=== PATIENT | male | born 1980 | race Caucasian/White ===

== ENCOUNTER 2020-09-12 22:22 | Emergency (ER) | payer SELFPAY ==
[2020-09-12 22:33] VITALS: BP 138/89; PULSE 89; RESP 18; TEMP 36.7; O2SAT 97; BMI 27.2
--- NOTE | 2020-09-12 22:43 | ED.CHESTPAIN ---
HPI - Chest Pain General Chief Complaint: Chest Pain Stated Complaint: CHEST PAIN Time Seen by Provider: 09/12/20 22:43 Source: patient Mode of arrival: ambulatory Limitations: no limitations History of Present Illness HPI narrative: patient chronic smoker with no known cardiac history about hour and a half ago while relaxing patient noticed mid chest pain radiating to left arm which was severe for 5 minutes and got better gradually. Patient denies any diaphoresis no shortness of breath no nausea no vomiting patient never had this pain before patient denied use of any cocaine no significant family history of coronary artery disease complaint: chest pain Onset (ago): minute(s) (90) Prior episodes: No Onset: during rest Pain location: substernal Pain radiation: left arm Severity: moderate Related Data Home Medications Medication Instructions Recorded Confirmed No Known Home Meds 09/12/20 09/12/20 Allergies Allergy/AdvReac Type Severity Reaction Status Date / Time prednisone [PREDNISONE] AdvReac Unknown AGITATION Verified 09/12/20 22:33 Review of Systems Review of Systems: REVIEW OF SYSTEMS: Pertinent positives and negatives are stated above in the history. GEN: no fevers, chills, fatigue HEENT: no nasal congestion, sore throat, ear pain NEURO: no headache, dizziness, focal weakness PULM: no cough, shortness of breath CV: no palpitations, LE edema ABD: no abdominal pain, nausea, vomiting, diarrhea : no dysuria, urgency, frequency SKIN: no rash ROS otherwise negative x 10 PMFSH Past Medical History Medical History History of dental problems Social History Social History Alcohol intake: current Alcohol intake frequency: holidays/special occasions only Smoking Status: Current every day smoker Use of substances other than those prescribed or required for medical reasons: No Advance Directives: No Advance Directives Information Provided: Yes Physical Exam Vital Signs: Vital Signs: Vital Signs Temp Pulse Resp BP Pulse Ox 09/12/20 22:47 85 14 158/96 H 97 09/12/20 22:33 98.1 F 89 18 138/89 97 Body Mass Index 27.2 VITAL SIGNS: Reviewed. GENERAL: Well developed, well nourished, in no acute distress. HEAD: Normocephalic/atraumatic, EYES: PERRLA No pallor/icterus noted EARS: Ext canals without abnormality NOSE: Nares patent bilateral OROPHARYNX: Oral mucosa moist no oral lesions NECK: Supple, no adenopathy LUNGS: Normal breath sounds. No adventitious sounds or accessory muscle use CARDIOVASCULAR: Regular rate and rhythm without noted murmurs, no JVD or lower extremity edema. ABDOMEN: Soft, non-tender, non-distended with bowel sounds. No rigidity. No guarding. No palpable masses or hernias noted MUSCULOSKELETAL: No tenderness, deformities, EXTREMITIES: No cyanosis or edema. SKIN: no rashes, ulcerations, jaundice, pallor, or petechiae NEUROLOGIC: Alert and oriented x 3. Strength and sensation to light touch were grossly intact Course Course Course Narrative: patient with chest pain without any acute EKG changes etiology not clear would like to do labs to rule out acute ischemic event. Patient refused to do any labs very anxious does not want any blood to be drawn understood risk of not doing the blood test will give him aspirin for now discharge him against medical advise MDM - Chest Pain ECG Data ECG #1: Attestation: I personally reviewed and interpreted this ECG as follows: ECG interpretation date: 09/12/20 Interpretation: normal sinus rhythm with heart rate of 90 normal axis poor progression of R-wave in anterior leads no acute ST T wave changes impression no acute ischemia Discharge Plan Discharge Clinical Impression: Chest pain Patient Disposition: Left Against Medical Advice Instructions: Chest Pain (ED) Additional Instructions: take baby aspirin daily. Follow with primary care doctor for further evaluation. You have been discharged against medical advise please seek medical attention as soon as possible Prescriptions: No Action No Known Home Meds RF: 0 Referrals: Oliver Ayala MD [Physician] - 1 week Stand Alone Forms: Against Medical Advice
[2020-09-12 22:47] VITALS: BP 158/96; PULSE 85; RESP 14; O2SAT 97
[2020-09-12] MEDS: Aspirin 81 MG TAB.CHEW 162 MG PO (23:07)
--- NOTE | 2020-09-14 | ECG_ITS ---
Test Reason : CP Blood Pressure : / mmHG Vent. Rate : 090 BPM Atrial Rate : 090 BPM P-R Int : 120 ms QRS Dur : 082 ms QT Int : 358 ms P-R-T Axes : 048 028 044 degrees QTc Int : 437 ms Normal sinus rhythm RSR' or QR pattern in V1 suggests right ventricular conduction delay Nonspecific T wave abnormality Inferior leads Lateral leads Abnormal ECG Nonspecific T wave abnormality are new Referred By: Emery Huff Electronically Signed By:CHARLES LIN MD
== END 2020-09-12 23:52 | disposition left against medical advice (07) ==
PROVIDERS: Emergency Provider Internal Medicine
DX: R07.9 Chest pain, unspecified (principal); F17.200 Nicotine dependence, unspecified, uncomplicated; Z71.6 Tobacco abuse counseling
CPT/HCPCS: 93005; 99283; 99284

== ENCOUNTER 2020-09-22 10:10 | Outpatient (REF) | payer SELFPAY | END 2020-09-22 10:11 | disposition home or self-care (01) | LOC: HO.LAB 10:10 | PROVIDERS: Visit Provider Internal Medicine | DX: Z20.828 Contact with and (suspected) exposure to other viral communicable diseases (principal) | CPT/HCPCS: C9803; U0003 ==

== ENCOUNTER 2020-12-31 13:25 | Emergency (ER) | payer MEDICAID, SELFPAY ==
[2020-12-31 13:43] VITALS: BP 131/89; PULSE 81; RESP 18; TEMP 37.2; O2SAT 98; BMI 28.7
--- NOTE | 2020-12-31 13:43 | ED.DENTAL ---
HPI - Dental/Oral General Chief complaint: Dental/Oral Stated complaint: DENTAL PAIN Time Seen by Provider: 12/31/20 13:43 Source: patient Mode of arrival: ambulatory Limitations: no limitations History of Present Illness HPI Narrative: States history of extensive dental problems secondary to not having insurance has not had much dental care he has a dental decay several weeks ago he chipped his left upper molar and feels like that is infected. No facial swelling or discharge. No rash. No fever. No dysphagia. MD Complaint: tooth pain Location: Tooth # Onset (ago): day(s) Severity: moderate Exacerbating factors: chewing Context: history of dental caries Treatment prior to arrival: none Related Data Previous Rx's Medication Instructions Recorded ibuprofen 800 mg PO Q8H PRN #30 tab 12/31/20 penicillin V potassium 500 mg PO BID 10 Days #20 tab 12/31/20 Allergies Allergy/AdvReac Type Severity Reaction Status Date / Time prednisone [PREDNISONE] AdvReac Unknown AGITATION Verified 09/12/20 22:33 Review of Systems Review of Systems: Constitutional: No Weight loss, No Fever, No Chills, No Night Sweats, No Fatigue, No Malaise ENT/Mouth: No Hearing loss, No Ear Pain, No Nasal Congestion, No Sinus Pain, No Hoarseness, No sore throat, No Rhinorrhea, No Swallowing Difficulty Eyes: No Eye Pain, No Swelling, No Redness, No Foreign Body, No Discharge, No Vision Changes Cardiovascular: Negative Respiratory: Negative Gastrointestinal: Negative Genitourinary: Negative Musculoskeletal: No joint pain, No Myalgias, No Joint Swelling Skin: No Skin Lesions, No rash Neuro: Negative Psych: No Social Issues Heme/Lymph: No Bruising, No Bleeding,No Lymphadenopathy Endocrine: No Polyuria, No Polydipsia, No Temperature Intolerance Yes all other systems are reviewed and are negative [facility] Past Medical History Medical History History of dental problems Social History Social History Alcohol intake: current Alcohol intake frequency: holidays/special occasions only Smoking Status: Current every day smoker Advance Directives: No Advance Directives Information Provided: Yes Physical Exam Vital Signs: Vital Signs: Last Vital Signs Temp 99.0 F 12/31/20 13:43 Pulse 81 12/31/20 13:43 Resp 18 12/31/20 13:43 BP 131/89 12/31/20 13:43 Pulse Ox 98 12/31/20 13:43 Body Mass Index 28.7 Reviewed Const: General: cooperative and healthy appearing; No acute distress or intoxicated appearing Nutritional Appearance: average body habitus Orientation/consciousness: patient oriented x3 HENMT: Head: Yes normal to inspection Ears: hearing grossly normal bilaterally Teeth and gingiva: other (Extensive decay essentially eroded 13. 14. 15 and partially chip 16. ) Eyes: General: appearance normal, both eyes and all related structures Visual Aguilar: normal visual aguilar by confrontation Neck: Neck: Yes normal visual inspection, No positive Brudzinski's sign, No positive Kernig's sign and No tender Thyroid: Thyroid normal Resp: Effort & Inspection: normal respiratory effort Auscultation: clear to auscultation bilaterally Cardio: Jugular venous distension: no JVD Skin: General skin exam: no rashes or lesions noted Neuro: General: patient oriented x3 Extrem: General: Yes normal to inspection Discharge Plan Discharge Clinical Impression: Dental caries Patient Disposition: Home, Self-Care Instructions: Toothache (ED) Additional Instructions: [place] diet Chewing a good-sized Not rinses after heating Take your antibiotics Motrin for pain Follow-up with dentist as instructed Return if any concerns or worsening symptoms Thank you Prescriptions: New ibuprofen 800 mg tablet 800 mg PO Q8H PRN (Reason: pain) Qty: 30 RF: 0 penicillin V potassium 500 mg tablet 500 mg PO BID 10 Days Qty: 20 RF: 0 Referrals: Physician,None [Primary Care Provider] - 2 days (Dental list provided)
== END 2020-12-31 14:22 | disposition home or self-care (01) ==
PROVIDERS: Emergency Provider Emergency Medicine
DX: K02.9 Dental caries, unspecified (principal); F17.200 Nicotine dependence, unspecified, uncomplicated; Z71.6 Tobacco abuse counseling; Z79.899 Other long term (current) drug therapy
CPT/HCPCS: 99283

== ENCOUNTER 2021-08-04 08:36 | Outpatient (REF) | payer MEDICAID, SELFPAY | END 2021-08-04 08:37 | disposition home or self-care (01) | LOC: HO.LAB 08:36 | PROVIDERS: Visit Provider Internal Medicine | DX: Z20.822 Contact with and (suspected) exposure to COVID-19 (principal) | CPT/HCPCS: C9803; U0003; U0005 ==

== ENCOUNTER 2021-08-16 22:46 | Emergency (ER) | payer MEDICAID, SELFPAY ==
[2021-08-16 23:34] VITALS: BP 141/84; PULSE 76; RESP 16; TEMP 36.8; O2SAT 97; BMI 27.8
--- NOTE | 2021-08-17 00:39 | ED.DENTAL ---
HPI - Dental/Oral General Chief complaint: Dental/Oral Stated complaint: dental pain Source: patient Mode of arrival: ambulatory Limitations: no limitations History of Present Illness HPI Narrative: Patient presents to ED for right dental pain since yesterday. Patient denies any facial swelling or any recent head/face trauma. Patient denies any neck swelling. Patient states history of bad teeth and needs to be extracted but does not have time due to work. Related Data Previous Rx's Medication Instructions Recorded ibuprofen 800 mg tablet 800 mg PO Q8H PRN #30 tab 12/31/20 penicillin V potassium 500 mg 500 mg PO BID 10 Days #20 tab 12/31/20 tablet amoxicillin 875 mg-potassium 1 tab PO Q12H 10 Days #20 tab 08/17/21 clavulanate 125 mg tablet (Augmentin) naproxen 500 mg tablet 500 mg PO BID PRN #20 tab 08/17/21 Allergies Allergy/AdvReac Type Severity Reaction Status Date / Time prednisone [PREDNISONE] AdvReac Unknown AGITATION Verified 09/12/20 22:33 Review of Systems Review of Systems: Yes all other systems are reviewed and are negative Constitutional: Constitutional: Reports as per HPI and Reports no additional constitutional complaints Eyes: Eyes: Reports as per HPI and Reports no additional eye complaints ENT: Reports system reviewed and no additional complaints, except as documented, Reports as per HPI and Reports dental pain Cardiovascular: Cardiovascular: Reports as per HPI and Reports no additional cardiovascular complaints Respiratory: Respiratory: Reports as per HPI and Reports no additional respiratory complaints Gastrointestinal: Gastrointestinal: Reports as per HPI and Reports no additional gastrointestinal complaints Genitourinary: Genitourinary: Reports no additional male genitourinary complaints and Reports as per HPI Musculoskeletal: Musculoskeletal: Reports no additional musculoskeletal complaints and Reports as per HPI Neurologic: Reports system reviewed and no additional complaints, except as documented and Reports as per HPI Psychiatric: Psychiatric: Reports no additional psychiatric complaints and Reports as per HPI Endocrine: Endocrine: Reports no additional endocrine complaints and Reports as per HPI [facility] Past Medical History Medical History History of dental problems Social History Social History Alcohol intake: current Alcohol intake frequency: holidays/special occasions only Advance Directives: No Advance Directives Information Provided: Yes Physical Exam Vital Signs: Vital Signs: Last Vital Signs Temp 98.3 F 08/16/21 23:34 Pulse 76 08/16/21 23:34 Resp 16 08/16/21 23:34 BP 141/84 H 08/16/21 23:34 Pulse Ox 97 08/16/21 23:34 Body Mass Index 27.8 Const: General: cooperative, healthy appearing, comfortable, no acute distress, well developed, alert, awake and Physically active Orientation/consciousness: patient oriented x3 HENMT: Head: Yes normal to inspection, Yes No palpable skull fracture present, Yes normocephalic, Yes atraumatic and No abrasion Teeth image: 1. Positive for tenderness on palpation. Positive for slight decay. Negative for any swelling of the gum, redness of gum, or pus discharge. Negative for facial swelling. Eyes: General: appearance normal, both eyes and all related structures Neck: Neck: Yes normal visual inspection, Yes full ROM, Yes no lymphadenopathy, Yes no meningeal signs, Yes trachea midline, Yes supple, No anterior neck swelling and No tender Chest: Chest palpation & inspection: normal inspection of the chest and normal palpation of entire chest wall Resp: Effort & Inspection: normal respiratory effort and able to speak in complete sentences Auscultation: clear to auscultation bilaterally Cardio: Jugular venous distension: no JVD Heart sounds: S1 normal heart sound present and S2 normal heart sound present GI: Inspection: Yes normal to inspection and No abdominal wall ecchymosis Palpation (GI): Soft to palpation, not firm, nontender, no guarding and not rigid : General: No CVA tenderness and Yes no CVA tenderness Back/Spine/Pelvis: Back: no CVA tenderness, No CVA tenderness and No back tenderness Skin: General skin exam: no rashes or lesions noted and elasticity normal Neuro: General: patient oriented x3, gait normal, no meningeal signs and CN's II-XI intact bilaterally Cranial nerves: Yes CN's II-XII intact bilaterally Extrem: General: Yes normal to inspection and Yes full ROM Psych: Appearance: grossly normal, well kempt and not disheveled Course Course Course Narrative: Negative for any facial or neck swelling. Negative for signs of trauma. Not suspecting any retropharyngeal abscess. Reevaluation(s) Reevaluation #1: Patient given Toradol. Patient will be discharged with antibiotics and pain meds Time: 20:47 MDM - Dental/Oral MDM Narrative Medical decision making narrative: Dental pain Discharge Plan Discharge Clinical Impression: Toothache Patient Disposition: Home, Self-Care Instructions: Toothache (ED) Additional Instructions: Return to the ED immediately for any facial swelling, neck swelling, drooling, shortness of breath, change in voice, drooling, chest pain, or any other concerning symptoms. Please follow-up with dentist Prescriptions: New naproxen 500 mg tablet 500 mg PO BID PRN (Reason: pain) Qty: 20 RF: 0 amoxicillin-pot clavulanate [Augmentin] 875-125 mg tablet 1 tab PO Q12H 10 Days Qty: 20 RF: 0 No Action ibuprofen 800 mg tablet 800 mg PO Q8H PRN (Reason: pain) Qty: 30 RF: 0 penicillin V potassium 500 mg tablet 500 mg PO BID 10 Days Qty: 20 RF: 0 Stand Alone Forms: Work/School Release Print Language: Persian
== END 2021-08-17 01:07 | disposition home or self-care (01) ==
PROVIDERS: Emergency Provider Internal Medicine
DX: K08.89 Other specified disorders of teeth and supporting structures (principal); Z79.899 Other long term (current) drug therapy
CPT/HCPCS: 96372; 99283; 99284

== ENCOUNTER 2021-08-20 03:15 | Emergency (ER) | payer MEDICAID, SELFPAY ==
[2021-08-20 03:38] VITALS: BP 169/86; PULSE 85; RESP 16; TEMP 36.5; O2SAT 99; BMI 28.7
--- NOTE | 2021-08-20 05:38 | PC.NURSE ---
at bedside for primary eval.
--- NOTE | 2021-08-20 05:47 | ED_ITS ---
HPI - Eye Problem General Chief complaint: Eye Problems Stated complaint: Eye Swelling Time Seen by Provider: 08/20/21 05:43 Source: patient Mode of arrival: ambulatory Limitations: no limitations History of Present Illness HPI Narrative: Patient comes emergency room complaining of left eye swelling and itchiness and redness. Patient states he has been rubbing his eye. Patient denies foreign body sensation, no pain. Patient denies fever chills. States that his vision is within normal limits bilaterally Related Data Previous Rx's Medication Instructions Recorded ibuprofen 800 mg tablet 800 mg PO Q8H PRN #30 tab 12/31/20 penicillin V potassium 500 mg 500 mg PO BID 10 Days #20 tab 12/31/20 tablet amoxicillin 875 mg-potassium 1 tab PO Q12H 10 Days #20 tab 08/17/21 clavulanate 125 mg tablet (Augmentin) naproxen 500 mg tablet 500 mg PO BID PRN #20 tab 08/17/21 erythromycin 5 mg/gram (0.5 %) eye 0.5 inch OPHTHALMIC (EYE) BID #1 g 08/20/21 ointment Allergies Allergy/AdvReac Type Severity Reaction Status Date / Time prednisone [PREDNISONE] AdvReac Unknown AGITATION Verified 09/12/20 22:33 Review of Systems Review of Systems: Constitutional : No Weight loss, No Fever, No Chills, No Night Sweats, No Fatigue, No Malaise ENT/Mouth : No Hearing loss, No Ear Pain, No Nasal Congestion, No Sinus Pain, No Hoarseness, No sore throat, No Rhinorrhea, No Swallowing Difficulty, Eyes: No Eye Pain, No Swelling, no foreign body sensation, complaining of redness in the left eye, mild discharge, very itchy. Right eye within normal limits Cardiovascular : No Chest Pain, No SOB, No Dyspnea on Exertion, No Orthopnea, No Edema, No Palpitations Respiratory : No Cough, No Sputum, No Wheezing, No Smoke Exposure, No Dyspnea Gastrointestinal : No Nausea, No Vomiting, No Diarrhea, No Constipation, No abdominal Pain, No Hematochezia, No Melena Genitourinary : no irregular bleeding, No Dysuria, No Urinary Frequency, No Hematuria, No Urinary Incontinence, No Urgency, No Flank Pain, No Urinary Flow Changes, No Hesitancy Musculoskeletal : No joint pain, No Myalgias, No Joint Swelling Skin : No Skin Lesions, No rash Neuro : No Weakness, No Numbness, No Paresthesias, No Loss of Consciousness, No Dizziness, No Headache Psych : No Anxiety/Panic, No Depression, No SI/HI/AH/VH, No Social Issues, Heme/Lymph: No Bruising, No Bleeding,No Lymphadenopathy Endocrine : No Polyuria, No Polydipsia, No Temperature Intolerance ON LICENSE OF [facility] Past Medical History Medical History History of dental problems Social History Social History Alcohol intake: current Alcohol intake frequency: holidays/special occasions only Advance Directives: No Advance Directives Information Provided: No Physical Exam Vital Signs: Vital Signs: Last Vital Signs Temp 97.7 F 08/20/21 03:38 Pulse 85 08/20/21 03:38 Resp 16 08/20/21 03:38 BP 169/86 H 08/20/21 03:38 Pulse Ox 99 08/20/21 03:38 Body Mass Index 28.7 Const: Other: Appearance: Alert. Oriented X3. No acute distress. Eyes: Pupils equal, round and reactive to light. Left eye conjunctiva erythematous, scant discharge, fluorescein stain exam shows no corneal abrasions ENT: Pharynx normal. Neck: Normal inspection. Neck supple. No lymph nodes noted. No crepitus CVS: Normal heart rate and rhythm. Pulses normal. Normal S1 and S2 Respiratory: No respiratory distress. Breath sounds normal. No Wheezing. No rales Abdomen: Soft and nontender. No rigidity. No distention. good BS x4 Skin: Skin warm and dry. Normal skin color. Normal skin turgor. Extremities: No lower extremity edema. No lower extremity edema. No Lacerations. No Rash Neuro: Oriented X 3. No motor deficit. No sensory deficit. Moving all extermities. No slurred speech. Course Course Course Narrative: I discussed with the patient that he likely has conjunctivitis. Discharge Plan Discharge Clinical Impression: Conjunctivitis Patient Disposition: Home, Self-Care Instructions: Conjunctivitis (ED) Additional Instructions: Please follow-up with your primary care physician tomorrow. If you have any worsening or new symptoms, please return to the emergency room or call 911 Prescriptions: New erythromycin 5 mg/gram (0.5 %) ointment 0.5 inch ophthalmic (eye) BID Qty: 1 RF: 0 No Action ibuprofen 800 mg tablet 800 mg PO Q8H PRN (Reason: pain) Qty: 30 RF: 0 penicillin V potassium 500 mg tablet 500 mg PO BID 10 Days Qty: 20 RF: 0 naproxen 500 mg tablet 500 mg PO BID PRN (Reason: pain) Qty: 20 RF: 0 amoxicillin-pot clavulanate [Augmentin] 875-125 mg tablet 1 tab PO Q12H 10 Days Qty: 20 RF: 0
[2021-08-20] MEDS: Tetracaine HCl/PF 0.5% Oph Sol 4 ML DROPS 1 DROP EYE-BOTH (05:53)
[2021-08-20] MEDS: Fluorescein Sodium STRIP 1 STRIP EYE-BOTH (05:53)
--- NOTE | 2021-08-20 05:53 | PC.NURSE ---
Meds left at PT bed side for MD. PT awaiting eye exam.
[2021-08-20 06:15] VITALS: BP 144/93; PULSE 72; RESP 16; O2SAT 98
== END 2021-08-20 06:16 | disposition home or self-care (01) ==
PROVIDERS: Emergency Provider Emergency Medicine
DX: H10.32 Unspecified acute conjunctivitis, left eye (principal); Z79.899 Other long term (current) drug therapy
CPT/HCPCS: 99283; 99284

== ENCOUNTER 2021-11-01 12:54 | Outpatient (REF) | payer MEDICAID, SELFPAY | END 2021-11-01 12:55 | disposition home or self-care (01) | LOC: HO.LAB 12:54 | PROVIDERS: Visit Provider Internal Medicine | DX: Z20.822 Contact with and (suspected) exposure to COVID-19 (principal) | CPT/HCPCS: C9803; U0003; U0005 ==

== ENCOUNTER 2023-06-13 04:01 | Emergency (ER) | payer MEDICAID, SELFPAY ==
[2023-06-13 04:02] VITALS: BP 159/98; PULSE 90; RESP 20; TEMP 36.9; O2SAT 98; BMI 32.5
--- NOTE | 2023-06-13 04:46 | ED_ITS ---
HPI - Dental/Oral General Chief complaint: Dental/Oral Stated complaint: Dental infection Time Seen by Provider: 06/13/23 04:42 Source: patient Mode of arrival: ambulatory Limitations: no limitations History of Present Illness HPI Narrative: Patient comes to the emergency room complaining of dental pain. Couple of years ago patient chipped his tooth off in the front, and lately it has been acting up. Patient denies fever chills. Patient states that he has been avoiding for the last few years to go to the dentist but is aware that now he needs to make an appointment. MD Complaint: tooth pain Teeth map: 1. Related Data Previous Rx's Medication Instructions Recorded ibuprofen 800 mg tablet 800 mg PO Q8H PRN pain #30 tabs 12/31/20 penicillin V potassium 500 mg 500 mg PO BID 10 days #20 tabs 12/31/20 tablet amoxicillin 875 mg-potassium 1 tab PO Q12H 10 days #20 tabs 08/17/21 clavulanate 125 mg tablet (Augmentin) naproxen 500 mg tablet 500 mg PO BID PRN pain #20 tabs 08/17/21 erythromycin 5 mg/gram (0.5 %) eye 0.5 inch ophthalmic (eye) BID #1 g 08/20/21 ointment ibuprofen 600 mg tablet 600 mg PO TID PRN fever or pain 06/13/23 #20 tabs penicillin V potassium 500 mg 500 mg PO TID 10 days #30 tabs 06/13/23 tablet Allergies Allergy/AdvReac Type Severity Reaction Status Date / Time prednisone [PREDNISONE] AdvReac Unknown AGITATION Verified 09/12/20 22:33 Review of Systems Review of Systems: Constitutional : No Weight loss, No Fever, No Chills, No Night Sweats, No Fatigue, No Malaise ENT/Mouth : Complaining of dental pain, No Hearing loss, No Ear Pain, No Nasal Congestion, No Sinus Pain, No Hoarseness, No sore throat, No Rhinorrhea, No Swallowing Difficulty Eyes: No Eye Pain, No Swelling, No Redness, No Foreign Body, No Discharge, No Vision Changes Cardiovascular : No Chest Pain, No SOB, No Dyspnea on Exertion, No Orthopnea, No Edema, No Palpitations Respiratory : No Cough, No Sputum, No Wheezing, No Smoke Exposure, No Dyspnea Gastrointestinal : No Nausea, No Vomiting, No Diarrhea, No Constipation, No abdominal Pain, No Hematochezia, No Melena Genitourinary : no irregular bleeding, No Dysuria, No Urinary Frequency, No Hematuria, No Urinary Incontinence, No Urgency, No Flank Pain, No Urinary Flow Changes, No Hesitancy Musculoskeletal : No joint pain, No Myalgias, No Joint Swelling Skin : No Skin Lesions, No rash Neuro : No Weakness, No Numbness, No Paresthesias, No Loss of Consciousness, No Dizziness, No Headache Psych : No Anxiety/Panic, No Depression, No SI/HI/AH/VH, No Social Issues, Heme/Lymph: No Bruising, No Bleeding,No Lymphadenopathy Endocrine : No Polyuria, No Polydipsia, No Temperature Intolerance [facility] Past Medical History Medical History History of dental problems Social History Social History Alcohol intake: current Alcohol intake frequency: holidays/special occasions only Advance Directives: No Advance Directives Information Provided: Yes Physical Exam Vital Signs: Vital Signs: Last Vital Signs Temp 98.5 F 06/13/23 04:02 Pulse 90 06/13/23 04:02 Resp 20 06/13/23 04:02 BP 159/98 H 06/13/23 04:02 Pulse Ox 98 06/13/23 04:02 O2 Del Method Room Air 06/13/23 04:02 BMI result Body Mass Index 32.5 Const: Other: Appearance: Alert. Oriented X3. No acute distress. Eyes: Pupils equal, round and reactive to light. ENT: Pharynx normal. Complaining of dental pain, chipped tooth #8. Neck: Normal inspection. Neck supple. No lymph nodes noted. No crepitus CVS: Normal heart rate and rhythm. Pulses normal. Normal S1 and S2 Respiratory: No respiratory distress. Breath sounds normal. No Wheezing. No rales Abdomen: Soft and nontender. No rigidity. No distention. Skin: Skin warm and dry. Normal skin color. Normal skin turgor. Extremities: No lower extremity edema. No Lacerations. No Rash Neuro: Oriented X 3. No motor deficit. No sensory deficit. Moving all extremities. No slurred speech. CN 2 through 12 grossly intact Psych: calm, cooperative, normal affect Medical Decision Making Medical Decision Making MDM Narrative: -discussed with the patient that he needs to be seen by a dentist for definitive treatment. -patient was prescribed antibiotics, patient declined IM medication for pain. Patient prefers ibuprofen. Differential Diagnosis Differential Diagnoses: The differential diagnosis associated with the presentation includes (Cavity, gingivitis, chipped tooth) Discharge Plan Discharge Clinical Impression: Toothache Patient Disposition: Home, Self-Care Instructions: Toothache (ED) Additional Instructions: Please follow-up with your primary care physician tomorrow. If you have any worsening or new symptoms, please return to the emergency room or call 911 Prescriptions: New penicillin V potassium 500 mg tablet 500 mg PO TID 10 Days Qty: 30 0RF ibuprofen 600 mg tablet 600 mg PO TID PRN (Reason: fever or pain) Qty: 20 0RF No Action ibuprofen 800 mg tablet 800 mg PO Q8H PRN (Reason: pain) Qty: 30 0RF penicillin V potassium 500 mg tablet 500 mg PO BID 10 Days Qty: 20 0RF erythromycin 5 mg/gram (0.5 %) ointment 0.5 inch ophthalmic (eye) BID Qty: 1 0RF naproxen 500 mg tablet 500 mg PO BID PRN (Reason: pain) Qty: 20 0RF amoxicillin-pot clavulanate [Augmentin] 875-125 mg tablet 1 tab PO Q12H 10 Days Qty: 20 0RF Stand Alone Forms: Work/School Release
== END 2023-06-13 04:59 | disposition home or self-care (01) ==
PROVIDERS: Emergency Provider Emergency Medicine
DX: K08.89 Other specified disorders of teeth and supporting structures (principal); Z79.899 Other long term (current) drug therapy
CPT/HCPCS: 99283; 99284

== ENCOUNTER 2023-08-14 04:01 | Emergency (ER) | payer MEDICAID, SELFPAY ==
[2023-08-14 04:21] VITALS: BP 127/87; PULSE 81; RESP 16; TEMP 36.3; O2SAT 98; BMI 30.7
[2023-08-14 05:25] VITALS: BP 129/95; PULSE 72; RESP 16; TEMP 36.8; O2SAT 98
--- NOTE | 2023-08-14 05:48 | ED.EAR ---
HPI - Ear Problem General Chief complaint: Ear Problems Stated complaint: Unable to hear out of left Time Seen by Provider: 08/14/23 05:13 Source: patient Mode of arrival: ambulatory Limitations: no limitations History of Present Illness HPI Narrative: Patient presents of loss of hearing of the left ear. Started tonight will get 2:00 a.m. in the morning. Denies any pain, fevers, chills, discharge. Tried to clean his ear with a Q-tip but made the symptoms worse. Related Data Previous Rx's Medication Instructions Recorded ibuprofen 800 mg tablet 800 mg PO Q8H PRN pain #30 tabs 12/31/20 penicillin V potassium 500 mg 500 mg PO BID 10 days #20 tabs 12/31/20 tablet amoxicillin 875 mg-potassium 1 tab PO Q12H 10 days #20 tabs 08/17/21 clavulanate 125 mg tablet (Augmentin) naproxen 500 mg tablet 500 mg PO BID PRN pain #20 tabs 08/17/21 erythromycin 5 mg/gram (0.5 %) eye 0.5 inch ophthalmic (eye) BID #1 g 08/20/21 ointment ibuprofen 600 mg tablet 600 mg PO TID PRN fever or pain 06/13/23 #20 tabs penicillin V potassium 500 mg 500 mg PO TID 10 days #30 tabs 06/13/23 tablet Allergies Allergy/AdvReac Type Severity Reaction Status Date / Time prednisone [PREDNISONE] AdvReac Unknown AGITATION Verified 09/12/20 22:33 Review of Systems Review of Systems: CONSTITUTIONAL: Denies weight loss, fever and chills. HEENT: Denies changes in vision + hearing. RESPIRATORY: Denies SOB and cough. CV: Denies palpitations no CP. GI: Denies abdominal pain, nausea, vomiting and diarrhea. : Denies dysuria and urinary frequency. MSK: Denies myalgia and joint pain. SKIN: Denies rash and pruritus. NEUROLOGICAL: Denies headache and syncope. PSYCHIATRIC: Denies recent changes in mood. Denies anxiety and depression. All other ROS are negative unless in HPI PMFSH Past Medical History Medical History History of dental problems Social History Social History Alcohol intake: current Alcohol intake frequency: does not drink Advance Directives: No Physical Exam Vital Signs: Vital Signs: Last Vital Signs Temp 98.2 F 08/14/23 05:25 Pulse 72 08/14/23 05:25 Resp 16 08/14/23 05:25 BP 129/95 H 08/14/23 05:25 Pulse Ox 98 08/14/23 05:25 O2 Del Method Room Air 08/14/23 05:25 BMI result Body Mass Index 30.7 GEN: Well developed, no acute distress, alert, oriented HEENT: Normocephalic, atraumatic, normal external ears, nose appears normal, a cerumen impaction left ear, mild cerumen presents in the right ear Eyes: Normal to appearance Neck: Supple, no lymphadenopathy Respiratory: Talks in complete sentences, no respiratory distress Extremities: No clubbing cyanosis or edema Neurologic: No focal neurologic deficits, cranial nerves 2-12 intact, gait normal Skin: No rash Course Course Course Narrative: Cerumen removed from right ear. No evidence of perforation, tolerated procedure well. Will be discharged at this time. Procedures Ear Wax Removal Left Ear: Cerumenolytic Used: other (Hydrogen peroxide) Results: Re-examined: some cerumen remains TM Examination: TM(s) intact, normal appearance Ear Canal Exam: atraumatic Patient Tolerated Procedure: well Complications: no problems Technique: ear canal irrigated Medical Decision Making Medical Decision Making MDM Narrative: Patient presents with cerumen impaction left ear. Postprocedure, no evidence of otitis media or externa. Patient tolerated the procedure well. Differential Diagnosis Differential Diagnoses: The differential diagnosis associated with the presentation includes (Cerumen impaction) Prescription Management I considered prescription management with: Antibiotic Discharge Plan Discharge Clinical Impression: Impacted cerumen Patient Disposition: Home, Self-Care Instructions: Carbamide Peroxide (Into the ear) Prescriptions: No Action ibuprofen 800 mg tablet 800 mg PO Q8H PRN (Reason: pain) Qty: 30 0RF penicillin V potassium 500 mg tablet 500 mg PO BID 10 Days Qty: 20 0RF erythromycin 5 mg/gram (0.5 %) ointment 0.5 inch ophthalmic (eye) BID Qty: 1 0RF naproxen 500 mg tablet 500 mg PO BID PRN (Reason: pain) Qty: 20 0RF amoxicillin-pot clavulanate [Augmentin] 875-125 mg tablet 1 tab PO Q12H 10 Days Qty: 20 0RF penicillin V potassium 500 mg tablet 500 mg PO TID 10 Days Qty: 30 0RF ibuprofen 600 mg tablet 600 mg PO TID PRN (Reason: fever or pain) Qty: 20 0RF Referrals: Physician,None [Primary Care Provider] - (Primary care provider as needed) Stand Alone Forms: Work/School Release
== END 2023-08-14 06:12 | disposition home or self-care (01) ==
PROVIDERS: Emergency Provider Emergency Medicine
DX: H61.22 Impacted cerumen, left ear (principal)
CPT/HCPCS: 69209; 99282

== ENCOUNTER 2023-11-21 02:05 | Emergency (ER) | payer OTHER, SELFPAY ==
--- NOTE | 2023-11-21 | ECG_ITS ---
Test Reason : CHEST TIGHTNESS Blood Pressure : / mmHG Vent. Rate : 081 BPM Atrial Rate : 081 BPM P-R Int : 118 ms QRS Dur : 078 ms QT Int : 380 ms P-R-T Axes : 048 027 033 degrees QTc Int : 441 ms Normal sinus rhythm Normal ECG When compared with ECG of 12-SEP-2020 23:28, No significant change was found Referred By: Generic ED Physician Electronically Signed By:GEN JOHNSON MD
--- NOTE | ~2023-11-21 | XR_ITS ---
EXAMINATION: XR CHEST, 2 VIEWS CLINICAL INFORMATION: Cough COMPARISON: 01/29/2019 TECHNIQUE: PA and lateral views of the chest were obtained. FINDINGS: No consolidation, pneumothorax, or pleural effusion. Cardiac and mediastinal contours are normal. Pulmonary vasculature is unremarkable. Trachea is midline. Osseous structures are unremarkable. XR/XR chest 2V IMPRESSION: No acute cardiopulmonary findings.
[2023-11-21 02:12] VITALS: BP 137/98; PULSE 76; RESP 18; TEMP 36.6; O2SAT 98; BMI 31.6
--- NOTE | 2023-11-21 02:24 | MHC.EDTECH ---
patient refused Strep test
[2023-11-21 03:07] LABS: Influenza A PCR NEGATIVE (Negative); Influenza B PCR NEGATIVE (Negative); Resp Syncy Virus RNA Qual PCR NEGATIVE (Negative); SARS COV2 PCR INHOUSE NEGATIVE (Negative)
[2023-11-21 05:14] VITALS: BP 110/82; PULSE 62; TEMP 36.1; O2SAT 96
--- NOTE | 2023-11-21 05:25 | PC.NURSE ---
Ambulatory to x-ray. No distress noted.
--- NOTE | 2023-11-21 05:33 | ED.URI ---
HPI - URI/Sore Throat General Chief Complaint: Upper Respiratory Symptoms Stated Complaint: upper respiratory Time Seen by Provider: 11/21/23 05:11 Source: patient Mode of arrival: ambulatory Limitations: no limitations History of Present Illness HPI Narrative: Patient with nasal congestion cough wheezing for last 2 days history of same in the past but no diagnosis of asthma coughing with mucopurulent expectoration no fever no chills patient does have history of smoking Related Data Previous Rx's Medication Instructions Recorded ibuprofen 800 mg tablet 800 mg PO Q8H PRN pain #30 tabs 12/31/20 penicillin V potassium 500 mg 500 mg PO BID 10 days #20 tabs 12/31/20 tablet amoxicillin 875 mg-potassium 1 tab PO Q12H 10 days #20 tabs 08/17/21 clavulanate 125 mg tablet (Augmentin) naproxen 500 mg tablet 500 mg PO BID PRN pain #20 tabs 08/17/21 erythromycin 5 mg/gram (0.5 %) eye 0.5 inch ophthalmic (eye) BID #1 g 08/20/21 ointment ibuprofen 600 mg tablet 600 mg PO TID PRN fever or pain 06/13/23 #20 tabs penicillin V potassium 500 mg 500 mg PO TID 10 days #30 tabs 06/13/23 tablet albuterol sulfate 90 mcg/actuation 2 puff inhalation Q4-6H PRN 11/21/23 aerosol inhaler (ProAir HFA) shortness of breath or wheezing #8.5 grams benzonatate 200 mg capsule 200 mg PO TID PRN cough #30 caps 11/21/23 cefuroxime axetil 500 mg tablet 500 mg PO BID 10 days #20 tabs 11/21/23 doxycycline hyclate 100 mg tablet 100 mg PO BID #20 tabs 11/21/23 Allergies Allergy/AdvReac Type Severity Reaction Status Date / Time prednisone [PREDNISONE] AdvReac Unknown AGITATION Verified 11/21/23 02:16 Review of Systems Review of Systems: Yes all other systems are reviewed and are negative PMFSH Past Medical History Onset Date is defined in the Problem List Problems that require an onset date and time if occurred within 24 hrs of arrival to the ED Aortic Dissection and Rupture; Neurologic impairment; Cardiopulmonary Arrest; Endotracheal Intubation; Insertion or Replacement of Mechanical Circulatory Assist Device Medical History History of dental problems Social History Social History Alcohol intake: current Alcohol intake frequency: does not drink Smoked in Last 30 Days: Yes Use of substances other than those prescribed or required for medical reasons: No Advance Directives: No Advance Directives Information Provided: No Physical Exam Vital Signs: Vital Signs: Last Vital Signs Temp 97 F 11/21/23 05:14 Pulse 75 11/21/23 05:59 Resp 16 11/21/23 05:59 BP 128/92 H 11/21/23 05:59 Pulse Ox 96 11/21/23 05:14 O2 Del Method Room Air 11/21/23 05:14 BMI result Body Mass Index 31.6 Appearance: Alert. Oriented X3. No acute distress. ENT: Pharynx normal. Oral Mucosa moist inflamed nasal turbinate postnasal drip+ Neck: Normal inspection. Neck supple. CVS: Normal heart rate and rhythm. Pulses normal. Respiratory: No respiratory distress. Equal air entry bilateral, bilateral wheezing occasional crackles Abdomen: Soft and nontender. Bowel sounds are present, no mass palpable, no CVA tenderness Skin: Skin warm and dry. Normal skin color. Normal skin turgor. Extremities: No lower extremity edema. No calf tenderness Neuro: Oriented X 3. Medications Administered Discontinued Medications Generic Name Dose Route Start Last Admin Trade Name Freq PRN Reason Stop Dose Admin Albuterol Sulfate 2 puff 11/21/23 06:08 11/21/23 06:16 Albuterol Sulfate 90 Mcg 8 Gm Inhaler INHALE 11/21/23 06:09 2 puff ONCE ONE Administration Cefuroxime Axetil 500 mg 11/21/23 05:25 11/21/23 05:37 Cefuroxime Axetil 500 Mg Tablet PO 11/21/23 05:26 500 mg ONCE ONE Administration Albuterol Sulfate 2.5 mg/ 0 mg 11/21/23 05:25 11/21/23 05:50 Albuterol/Ipratropium 3 ml INHALE 11/21/23 05:26 5 dose ONCE ONE Administration Doxycycline Monohydrate 100 mg 11/21/23 05:25 11/21/23 05:37 Doxycycline Monohydrate 100 Mg Capsule PO 11/21/23 05:26 100 mg ONCE ONE Administration Medical Decision Making Medical Decision Making MDM Narrative: Patient has acute bronchitis x-ray negative patient noted to be wheezing in the ER will give nebulizing treatment discharge patient on antibiotics and inhaler Lab Data [facility] Lab Attestation statement: I reviewed the patient's lab results. Labs: Lab Results 11/21/23 Range/Units 02:24 Influenza Type A (PCR) NEGATIVE (Negative) Influenza Type B (PCR) NEGATIVE (Negative) RSV RNA Qual (PCR) NEGATIVE (Negative) SARS-CoV-2 RNA (RT-PCR) NEGATIVE (Negative) Independent Interpretation I performed an independent interpretation of an: Plain X-Ray Radiology Impression Discussion of test interpretation with radiology: I have reviewed the radiologist's reading. Discharge Plan Discharge Clinical Impression: Bronchitis Patient Disposition: Home, Self-Care Instructions: Acute Bronchitis (ED) Additional Instructions: Take antibiotics and inhaler as prescribed Cough drops as prescribed Follow with PCP as needed Stop smoking Prescriptions: New benzonatate 200 mg capsule 200 mg PO TID PRN (Reason: cough) Qty: 30 0RF cefuroxime axetil 500 mg tablet 500 mg PO BID 10 Days Qty: 20 0RF doxycycline hyclate 100 mg tablet 100 mg PO BID Qty: 20 0RF albuterol sulfate [ProAir HFA] 90 mcg/actuation HFA aerosol inhaler 2 puff inhalation Q4-6H PRN (Reason: shortness of breath or wheezing) Qty: 8.5 0RF No Action ibuprofen 800 mg tablet 800 mg PO Q8H PRN (Reason: pain) Qty: 30 0RF penicillin V potassium 500 mg tablet 500 mg PO BID 10 Days Qty: 20 0RF erythromycin 5 mg/gram (0.5 %) ointment 0.5 inch ophthalmic (eye) BID Qty: 1 0RF naproxen 500 mg tablet 500 mg PO BID PRN (Reason: pain) Qty: 20 0RF amoxicillin-pot clavulanate [Augmentin] 875-125 mg tablet 1 tab PO Q12H 10 Days Qty: 20 0RF penicillin V potassium 500 mg tablet 500 mg PO TID 10 Days Qty: 30 0RF ibuprofen 600 mg tablet 600 mg PO TID PRN (Reason: fever or pain) Qty: 20 0RF Stand Alone Forms: Work/School Release Interventions: ED Discharge Assessment Last Done: 11/21/23 06:25 Discharge Date/Time: 11/21/23 06:26
[2023-11-21] MEDS: Doxycycline Monohydrate 100 MG CAPSULE PO (05:37)
[2023-11-21] MEDS: cefuroxime axetiL 500 MG TABLET PO (05:37)
--- NOTE | 2023-11-21 05:41 | PC.NURSE ---
Medicated PO as ordered. Pt tolerated well.
[2023-11-21] MEDS: Albuterol Sulfate 2.5 MG, Albuterol/Iprat 2.5/0.5MG 3 ML 3 ML INHALE (05:50)
[2023-11-21 05:52] VITALS: PULSE 69; RESP 18; O2SAT 99
--- NOTE | 2023-11-21 05:52 | PC.NURSE ---
RT at bedside.
[2023-11-21 05:59] VITALS: BP 128/92; PULSE 75; RESP 16
[2023-11-21] MEDS: Albuterol Sulfate 90 MCG 8 GM INHALER 2 PUFF INHALE (06:16)
== END 2023-11-21 06:26 | disposition home or self-care (01) ==
PROVIDERS: Emergency Provider Internal Medicine
DX: J40 Bronchitis, not specified as acute or chronic (principal); Z20.822 Contact with and (suspected) exposure to COVID-19; Z20.828 Contact with and (suspected) exposure to other viral communicable diseases
CPT/HCPCS: 0241U; 71046; 93005; 94640; 99284; 99285

== ENCOUNTER → 2023-11-21 02:20 | Outpatient (BNV) | payer SELFPAY | PROVIDERS: Emergency Provider Internal Medicine; Visit Provider Internal Medicine Cardiovascular Disease | DX: R07.9 Chest pain, unspecified (principal) | CPT/HCPCS: 93010 ==

== ENCOUNTER 2024-09-28 13:32 | Emergency (ER) | payer OTHER, SELFPAY ==
[2024-09-28 13:36] VITALS: BP 135/90; PULSE 112; RESP 16; TEMP 36.9; O2SAT 98; BMI 31.6
--- NOTE | 2024-09-28 13:40 | ED.GENADULT ---
HPI - General Adult General Chief complaint: Dental/Oral Stated complaint: Dental pain Time Seen by Provider: 09/28/24 13:39 Source: patient Mode of arrival: ambulatory Limitations: no limitations History of Present Illness ED Provider: Lino Petty HPI narrative: 44 yodl male presents to ED for left ear left lower molar pain for the past 3 days without any neck swelling, jaw swelling, drooling, fever, chills, and recent trauma. Patient states he seems to have left lower molar extracted but he scan to go to his dentist. Related Data Previous Rx's ?Medication ?Instructions ?Recorded ibuprofen 800 mg tablet 800 mg PO Q8H PRN pain #30 tabs 12/31/20 penicillin V potassium 500 mg 500 mg PO BID 10 days #20 tabs 12/31/20 tablet amoxicillin 875 mg-potassium 1 tab PO Q12H 10 days #20 tabs 08/17/21 clavulanate 125 mg tablet (Augmentin) naproxen 500 mg tablet 500 mg PO BID PRN pain #20 tabs 08/17/21 erythromycin 5 mg/gram (0.5 %) eye 0.5 inch ophthalmic (eye) BID #1 g 08/20/21 ointment ibuprofen 600 mg tablet 600 mg PO TID PRN fever or pain 06/13/23 #20 tabs penicillin V potassium 500 mg 500 mg PO TID 10 days #30 tabs 06/13/23 tablet albuterol sulfate 90 mcg/actuation 2 puff inhalation Q4-6H PRN 11/21/23 aerosol inhaler (ProAir HFA) shortness of breath or wheezing #8.5 grams benzonatate 200 mg capsule 200 mg PO TID PRN cough #30 caps 11/21/23 cefuroxime axetil 500 mg tablet 500 mg PO BID 10 days #20 tabs 11/21/23 doxycycline hyclate 100 mg tablet 100 mg PO BID #20 tabs 11/21/23 amoxicillin 875 mg-potassium 1 tab PO Q12H 10 days #20 tabs 09/28/24 clavulanate 125 mg tablet carbamide peroxide 6.5 % ear drops 5 drp otic (ear) left Q12H 4 days 09/28/24 (Debrox) #15 mL naproxen 500 mg tablet 500 mg PO BID PRN pain 7 days #14 11/17/24 tabs Allergies Allergy/AdvReac Type Severity Reaction Status Date / Time prednisone [PREDNISONE] AdvReac Unknown AGITATION Verified 09/28/24 13:38 Review of Systems Review of Systems: left lower molar pain radiating to lower jaws [facility] Past Medical History Medical History History of dental problems Social History Social History Alcohol intake: current Alcohol intake frequency: does not drink Advance Directives: No Advance Directives Information Provided: Yes Do you have a plan to hurt others: No Plan Physical Exam ED Vital Signs: Vital Signs - 24 hr 09/28/24 13:36 09/28/24 13:53 09/28/24 14:10 Temperature 98.4 F 97.5 F Pulse Rate 112 H 104 H 104 H Respiratory Rate 16 16 Blood Pressure 135/90 H 142/87 H Pulse Oximetry 98 97 Oxygen Delivery Method Room Air Room Air BMI result Body Mass Index 31.6 Const General: cooperative, healthy appearing, comfortable, no acute distress, well developed, alert, awake and Physically active Orientation/consciousness: patient oriented x3 HENMT Other: Negative for any facial or neck swelling. Head: Yes normal to inspection, Yes No palpable skull fracture present, Yes normocephalic and Yes atraumatic Ears: hearing grossly normal bilaterally, external ears normal, TM's normal bilaterally, TM normal on the right, TM normal on the left, EAC's normal, mastoids normal and no periauricular adenopathy Teeth image: 1. Tender to palpation. Negative for any pus collection. Negative for gum swelling or redness. Negative trismus. Throat: Yes posterior oropharynx normal, Yes tonsils normal and Yes uvula midline Eyes General: appearance normal, both eyes and all related structures Neck Neck: Yes normal visual inspection, Yes full ROM, Yes no lymphadenopathy, Yes no meningeal signs, Yes trachea midline, Yes supple, No anterior neck swelling and No tender Chest Chest palpation & inspection: normal inspection of the chest and normal palpation of entire chest wall Resp Effort & Inspection: normal respiratory effort and able to speak in complete sentences Auscultation: clear to auscultation bilaterally Cardio Jugular venous distension: no JVD Heart sounds: S1 normal heart sound present and S2 normal heart sound present GI Inspection: Yes normal to inspection Palpation (GI): Soft to palpation, not firm, nontender, no guarding and not rigid General: No CVA tenderness and Yes no CVA tenderness Back/Spine/Pelvis Back: no CVA tenderness, No CVA tenderness and No back tenderness Skin General skin exam: no rashes or lesions noted, elasticity normal and turgor normal Neuro General: patient oriented x3, gait normal, tone normal, moves all extremities, Normal light touch and pain sensation, no meningeal signs, no focal motor deficits, CN's II-XI intact bilaterally and normal sensation to monofilament Extrem General: Yes normal to inspection, Yes full ROM and Yes capillary refill normal Psych Appearance: grossly normal, well kempt and not disheveled Medical Decision Making Medical Decision Making MDM Narrative: 44 yold male presents to the ED for left lower molar tooth pain and left ear pain. Patient denies any fever, chills, nausea, vomitting, or recent trauma. NEgative for any facial, jaw, or neck swelling. left lower molar tender to touch in the back. negative for gum swelling or trismus. Left ear exam shows debrox. Not suspecting Scottie's angina, peritonsillar abscess, retropharyngeal abscess, or oral cancer. Differential Diagnosis Differential Diagnoses: The differential diagnosis associated with the presentation includes (Dental pain, contrast media, otitis externa) Admission/Observation Consideration of admission/observation: Escalation of care including admission/observation considered Independent Historian Clinical information obtained from an independent historian. History obtained from or confirmed by: Other (Patient) External Record Review External record reviewed: Other (Visits) Discharge Plan Discharge Clinical Impression: Toothache, Cerumen impaction Patient Disposition: Home, Self-Care Instructions: Carbamide Peroxide (Into the ear), Toothache (ED) Additional Instructions: Return to ED immediately for any facial swelling, lower jaw swelling, neck swelling, dental pain, drooling, change in voice, inability tolerate solid food/liquid, severe ear pain, ear discharge, facial swelling, fever, chills, or any other concerning symptoms. Recommend follow-up with primary care provider and your dentist. Prescriptions: New amoxicillin-pot clavulanate 875-125 mg tablet 1 tab PO Q12H 10 Days Qty: 20 0RF naproxen 500 mg tablet 500 mg PO BID PRN (Reason: pain) 7 Days Qty: 14 0RF Debrox 6.5 % drops 5 drp otic (ear) left Q12H 4 Days Qty: 15 0RF Rx Instructions: place in left ear No Action ibuprofen 800 mg tablet 800 mg PO Q8H PRN (Reason: pain) Qty: 30 0RF penicillin V potassium 500 mg tablet 500 mg PO BID 10 Days Qty: 20 0RF erythromycin 5 mg/gram (0.5 %) ointment 0.5 inch ophthalmic (eye) BID Qty: 1 0RF naproxen 500 mg tablet 500 mg PO BID PRN (Reason: pain) Qty: 20 0RF amoxicillin-pot clavulanate [Augmentin] 875-125 mg tablet 1 tab PO Q12H 10 Days Qty: 20 0RF penicillin V potassium 500 mg tablet 500 mg PO TID 10 Days Qty: 30 0RF ibuprofen 600 mg tablet 600 mg PO TID PRN (Reason: fever or pain) Qty: 20 0RF benzonatate 200 mg capsule 200 mg PO TID PRN (Reason: cough) Qty: 30 0RF cefuroxime axetil 500 mg tablet 500 mg PO BID 10 Days Qty: 20 0RF doxycycline hyclate 100 mg tablet 100 mg PO BID Qty: 20 0RF albuterol sulfate [ProAir HFA] 90 mcg/actuation HFA aerosol inhaler 2 puff inhalation Q4-6H PRN (Reason: shortness of breath or wheezing) Qty: 8.5 0RF Stand Alone Forms: Work/School Release Interventions: ED Discharge Assessment Last Done: 09/28/24 14:10 Discharge Date/Time: 09/28/24 14:11 Print Language: Tu[place]
[2024-09-28 13:53] VITALS: PULSE 104
[2024-09-28 14:10] VITALS: BP 142/87; PULSE 104; RESP 16; TEMP 36.4; O2SAT 97
== END 2024-09-28 14:11 | disposition home or self-care (01) ==
PROVIDERS: Emergency Provider Emergency Medicine
DX: H61.22 Impacted cerumen, left ear (principal); K08.89 Other specified disorders of teeth and supporting structures
CPT/HCPCS: 99282; 99283